=== PATIENT | female | born 1940 | race Hispanic/Latino ===

== ENCOUNTER 2016-11-16 01:09 | Inpatient (IN) | payer MEDICARE, BC ==
[2016-11-16] MEDS ORDERED: Sodium Chloride 0.9% 1,000 ML IV ONE (01:29)
[2016-11-16] MEDS ORDERED: Pantoprazole 80 MG in Sodium Chloride 0.9% 100 ML IV STA (01:29)
--- NOTE | 2016-11-16 01:39 | C.PDOC ---
History Of Present Illness Patient, with a past medical history of diverticulitis, hypertension and hypercholesterolemia, is brought to the ED by ambulance complaining of 5-6 episodes of bright red blood from her rectum that began earlier today. Patient also complains of a syncopal episode while in the bathroom, but denies any fall. Patient denies chest pain, shortness of breath, nausea, vomiting, numbness , weakness, or dizziness. Time Seen by Provider: 11/16/16 01:28 Chief Complaint (Nursing): Syncope History Per: Patient History/Exam Limitations: no limitations Onset/Duration Of Symptoms: Hrs (earlier today) Current Symptoms Are (Timing): Still Present Number Of Bleeding Episodes: Multiple: (5-6) Amount of Blood Loss: Small Severity: Mild Pain Scale Rating Of: 3 Quality Of Discomfort: Other Associated Symptoms: Rectal Bleeding Modifying Factors: None Recent travel outside of the [place]: No Additional History Per: EMS Past Medical History Reviewed: Historical Data, Nursing Documentation, Vital Signs Vital Signs: Last Vital Signs Temp 97.5 F L 11/16/16 01:18 Pulse 61 11/16/16 01:18 Resp 24 11/16/16 01:18 BP 109/46 L 11/16/16 01:18 Pulse Ox 95 11/16/16 01:51 - Medical History PMH: Diverticulitis, HTN, Hypercholesterolemia Surgical History: CABG (3 stents), Cholecystectomy - [facility] Procedures INSERTION OF TOTALLY IMPLANTABLE VASC ACCESS DEVIC (08/03/04) OPEN BIOPSY OF BREAST (12/10/03) PERCUTAN NEEDLE BIOPSY OF BREAST (08/26/03) SUBTOTAL MASTECTOMY (12/10/03) UP LIMB SFT TIS XRAY NEC (08/03/04) Family History: States: Unknown Family Hx - Social History Hx Alcohol Use: No Hx Substance Use: No - Immunization History Hx Tetanus Toxoid Vaccination: No Hx Influenza Vaccination: Yes Hx Pneumococcal Vaccination: No Review Of Systems Cardiovascular: Negative for: Chest Pain Respiratory: Negative for: Shortness of Breath Gastrointestinal: Positive for: Other (rectal bleeding). Negative for: Nausea, Vomiting Neurological: Positive for: Other (syncope). Negative for: Weakness, Numbness, Dizziness Physical Exam - Physical Exam Appears: Non-toxic, No Acute Distress Skin: Warm, Dry Head: Atraumatic, Normacephalic Eye(s): bilateral: PERRL, EOMI Oral Mucosa: Moist Neck: Supple Chest: Symmetrical, Other (port on right side of chest from previous chemo) Cardiovascular: Rhythm Regular Respiratory: No Rales, No Rhonchi, No Wheezing Gastrointestinal/Abdominal: Soft, No Tenderness, No Guarding, No Rebound Rectal: Hemorrhoids (large), Other (large rectal tear) Back: No CVA Tenderness Extremity: Bilateral: Atraumatic, Normal Color And Temperature Neurological/Psych: Oriented x3 ED Course And Treatment - Laboratory Results Result Diagrams: 11/16/16 01:44 11/16/16 01:44 ECG: Interpreted By Me, Viewed By Me ECG Rhythm: Sinus Bradycardia (49), Nonspecific Changes (old anteroseptal mi) O2 Sat by Pulse Oximetry: 95 (RA) Pulse Ox Interpretation: Normal Progress Note: Plan: EKG, Labs, Pantoprazole, IV fluids, Zofran Disposition Discussed With : Phong Lopez Comment: accepted the pt on his service and took over the care at 3:10AM Doctor Will See Patient In The: Hospital Counseled Patient/Family Regarding: Studies Performed, Diagnosis - Disposition Disposition: HOSPITALIZED Disposition Time: :29 Condition: FAIR - POA Present On Arrival: Poor Glycemic Control - Clinical Impression Clinical Impression: Syncope, Hemorrhoids, Rectal bleed - Scribe Statement The provider has reviewed the documentation as recorded by the Scribe Radha Israel Provider Attestation: All medical record entries made by the Scribe were at my direction and personally dictated by me. I have reviewed the chart and agree that the record accurately reflects my personal performance of the history, physical exam, medical decision making, and the department course for this patient. I have also personally directed, reviewed, and agree with the discharge instructions and disposition. Decision To Admit - Pt Status Changed To: Hospital Disposition Of: Inpatient - Admit Certification Admit to Inpatient:: After my assessment, the patient will require hospitalization for at least two midnights. This is because of the severity of symptoms shown, intensity of services needed, and/or the medical risk in this patient being treated as an outpatient. - InPatient: Physician Admission Certification: I certify that this patient requires 2 or more midnights of care for the following reason:: After my assessment, the patient will require hospitalization for at least two midnights. This is because of the severity of symptoms shown, intensity of services needed, and/or the medical risk in this patient being treated as an outpatient. - . Bed Request Type: Telemetry Admitting Physician: Phong Lopez Patient Diagnosis: Syncope, Hemorrhoids, Rectal bleed
[2016-11-16 01:54] LABS: BASO # 0.2 K/uL (0.0-0.2); BASO % 1.1 % (0.0-2.0); EOS # 0.5 K/uL (0.0-0.7); HEMATOCRIT 37.2 % (34.0-47.0); LYMPH # 2.7 K/uL (1.0-4.3); MEAN CELL VOLUME 86.8 fL (81.0-99.0); MEAN CORPUSCULAR HEMOGLOBIN 29.1 pg (27.0-31.0); MEAN CORPUSCULAR HGB CONC 33.6 g/dL (33.0-37.0); MONO # 0.9 K/uL (0.0-0.8); NRBC % 0.1 % (0.0-2.0); RED CELL DISTRIBUTION WIDTH 14.3 % (11.5-14.5); WHITE BLOOD COUNT 17.1 K/uL (4.8-10.8)
[2016-11-16 02:04] LABS: ALB/GLOB RATIO 1.4 (1.0-2.1); TOTAL PROTEIN 7.6 g/dL (6.3-8.3)
[2016-11-16 02:05] LABS: CALCIUM 9.2 mg/dl (8.6-10.4)
[2016-11-16 02:06] LABS: POTASSIUM 5.1 mmol/L (3.6-5.2)
--- NOTE | 2016-11-16 06:09 | CT ---
EXAM: CT Head Without Intravenous Contrast CLINICAL HISTORY: 75 years old, female; Pain; Headache and other: Syncope TECHNIQUE: Axial computed tomography images of the head/brain without intravenous contrast. This CT exam was performed using one or more of the following dose reduction techniques: automated exposure control, adjustment of the mA and/or kV according to patient size, and/or use of iterative reconstruction technique. EXAM DATE/TIME: 11/16/2016 3:11 AM COMPARISON: No relevant prior studies available. FINDINGS: Artifacts from left suprasellar aneurysm coil limit assessment of surrounding area. There is no pathological intra-axial or extra-axial fluid collection. No edema, midline shift or mass effect is noted. Periventricular white matter hypoattenuation of small vessel disease are noted. Tiny old lacunar infarcts in right basal ganglia and thalamus, head left caudate nucleus are noted. There is normal ricketts white differentiation. There is cerebral atrophy. Calvarium is unremarkable. Included paranasal sinuses and mastoids are clear. IMPRESSION: 1. No acute cerebral hemorrhage or edema. 2. Small vessel ischemic disease, old lacunar infarcts and atrophy.
[2016-11-16] MEDS: (Novolin R) Insulin Human Regular 100 units/ml vial SC SCH ×4 (07:30→22:55)
[2016-11-16] MEDS: Ciprofloxacin 400mg/200ml D5W 200 ML IVPB SCH ×2 (08:00→19:57)
[2016-11-16] MEDS: cefTRIAXone IV 1 gm in Dextros 50 ML IVPB SCH (10:00)
--- NOTE | 2016-11-16 10:46 | CP.PCM.CON ---
<Roger Colon - Last Filed: 11/16/16 11:29> History of Present Illness - History of Present Illness History of Present Illness: PGY4 GI Fellow Consult Note Patient is a 75yo female with PMHx significant for lung cancer, cerebral aneursym s/p coiling, CAD s/p 3 vessel CABG, divertiulitis s/p partial colectomy , HTN, DM, Dyslipidemia who presented to the hospital with one day of rectal bleeding. The patient is a poor historian. Spoke with her daughter Penny on the phone who is also not completely aware of her mother's past history. Patient passed a large, hard BM yesterday morning and noted bright red blood mixed in with her stool. Since this episode she had 5-6 more episodes along with some dark black stool. 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 The patient also admits that 3 weeks prior to admission she suddenly developed vertigo with nausea which she treated with OTC Dramamine and Pepto Bismol and had subsequent improvement in symptoms. Moreover, following this episode she had neck/back/leg pain for which she used almost daily ASA and Alleve. Admits to She has a long history of constipation with inability to pass stool more than every 3 days. She does not use any laxative or stool softener at home. Currently, she denies any abdominal pain, nausea, vomiting, fever, chills, weight loss, dysphagia. PMHx: See HPI PSHx: Partial colectomy with diverting colostomy and eventual reversal for diverticulitis, Cholecystectomy, Vessel coiling for cerebral aneurysm, CABG [id number] FHx: Mother - unknown malignancy Social: Quit smoking > 10 years ago - 60+pack years, denies EtOH or illicit drug use Endo: Unsure - may have had colonoscopy previously Review of Systems - Constitutional Constitutional: absent: Anorexia, Chills, Weight Loss - EENT Eyes: absent: Change in Vision Nose/Mouth/Throat: absent: Sore Throat - Cardiovascular Cardiovascular: absent: Chest Pain, Diaphoresis, Dyspnea, Palpitations - Respiratory Respiratory: absent: Cough, Dyspnea, Change in Mucous Color - Gastrointestinal Gastrointestinal: Constipation, Hematochezia, Melena. absent: Abdominal Pain, Bloating, Cramping, Diarrhea, Dyspepsia, Dysphagia, Heartburn, Hematemesis, Loose Stools, Nausea, Vomiting - Genitourinary Genitourinary: absent: Dysuria, Urinary Frequency, Urinary Urgency - Musculoskeletal Musculoskeletal: absent: Back Pain, Neck Pain - Integumentary Integumentary: absent: New Lesions, Rash - Neurological Neurological: Dizziness, Syncope, Vertigo. absent: Numbness, Focal Weakness - Psychiatric Psychiatric: absent: Anxiety, Depression - Endocrine Endocrine: absent: Polydipsia, Polyphagia, Polyuria - Hematologic/Lymphatic Hematologic: absent: Easy Bleeding, Easy Bruising, Lymphadenopathy Past Patient History - Infectious Disease Hx of Infectious Diseases: None - Past Medical History & Family History Past Medical History?: Yes - Past Social History Smoking Status: Never Smoked - CARDIAC Hx Hypercholesterolemia: Yes Hx Hypertension: Yes - PULMONARY Hx Respiratory Disorders: No - NEUROLOGICAL Hx Neurological Disorder: Yes Other/Comment: Brain aneurysm - HEENT Hx HEENT Problems: No - RENAL Hx Chronic Kidney Disease: No - ENDOCRINE/METABOLIC Hx Endocrine Disorders: Yes - HEMATOLOGICAL/ONCOLOGICAL Hx Cancer: Yes (lung) - INTEGUMENTARY Hx Dermatological Problems: No - MUSCULOSKELETAL/RHEUMATOLOGICAL Hx Falls: No - GASTROINTESTINAL Hx Diverticulitis: Yes - GENITOURINARY/GYNECOLOGICAL Hx Genitourinary Disorders: No - PSYCHIATRIC Hx Substance Use: No - SURGICAL HISTORY Hx Cholecystectomy: Yes Hx Coronary Artery Bypass Graft: Yes (3 stents) - ANESTHESIA Hx Anesthesia: Yes Hx Anesthesia Reactions: No Hx Malignant Hyperthermia: No Has any member of the family had a problem w/ anesthesia?: No Meds Allergies/Adverse Reactions: Allergies Allergy/AdvReac Type Severity Reaction Status Date / Time No Known Allergies Allergy Verified 11/16/16 01:24 - Medications Medications: Current Medications Ceftriaxone Sodium (Rocephin Iv 1 Gm Duplex) 50 mls @ 100 mls/hr IVPB DAILY [facility] Ciprofloxacin (Cipro 400mg/200ml Dsw) 200 mls @ 133 mls/hr IVPB Q12H [facility] Insulin Human Regular (Novolin R) 1 unit SC ACHS [facility] PRN Reason: Protocol Lisinopril (Zestril) 5 mg PO DAILY [facility] Losartan Potassium (Cozaar) 50 mg PO DAILY [facility] Pantoprazole Sodium (Protonix Inj) 40 mg IVP Q12H [facility] Pneumococcal Polyvalent Vaccine (Pneumovax 23 Vaccine) 0.5 ml IM .ONCE ONE Stop: 11/18/16 10:01 Physical Exam - Constitutional Appears: Non-toxic, No Acute Distress, Confused - Eye Exam Eye Exam: EOMI, PERRL - ENT Exam ENT Exam: Mucous Membranes Moist - Respiratory Exam Respiratory Exam: Clear to Auscultation Bilateral. absent: Rales, Rhonchi, Wheezes - Cardiovascular Exam Cardiovascular Exam: Bradycardia, REGULAR RHYTHM, +S1, +S2 - GI/Abdominal Exam GI & Abdominal Exam: Normal Bowel Sounds, Soft. absent: Distended, Firm, Guarding, Organomegaly, Rigid, Tenderness Additional comments: prior healed surgical scars - Rectal Exam Rectal Exam: Black Stool, Bloody Stool, Hemorrhoids (external) - Extremities Exam Extremities exam: Positive for: normal inspection. Negative for: pedal edema - Neurological Exam Neurological exam: Alert, Oriented x3 - Psychiatric Exam Psychiatric exam: Normal Affect, Normal Mood - Skin Skin Exam: Dry, Warm Results - Vital Signs Recent Vital Signs: Last Vital Signs Temp 97.9 F 11/16/16 08:29 Pulse 60 11/16/16 08:29 Resp 20 11/16/16 08:29 BP 144/60 11/16/16 08:29 Pulse Ox 93 L 11/16/16 08:29 - Labs Result Diagrams: 11/16/16 01:44 11/16/16 01:44 Labs: Laboratory Results - last 24 hr 11/16/16 06:23 POC Glucose (mg/dL) 115 H Assessment & Plan - Assessment and Plan (Free Text) Assessment: Patient is a 75yo female with PMHx significant for lung cancer, cerebral aneursym s/p coiling, CAD s/p 3 vessel CABG, divertiulitis s/p partial colectomy , HTN, DM,dyslipidemia who presented to the hospital with one day of rectal bleeding -Hematochezia -Syncope and collapse -External hemorrhoids -Constipation -Bradycardia -CAD s/p CABG -AHSAN vs CKD -H/O Lung cancer -H/O diverticulitis s/p partial colectomy -H/O cerebral aneurysm s/p coiling Plan: -Patient with melanotic stool and large external hemorrhoid on rectal examination -Would benefit from EGD/Colonoscopy for hematochezia in patient with history of lung cancer however, would require cardiology clearance given H/O CAD/CABG with bradycardia -I have called the patient's oncologist Dr Jones, awaiting call back regarding prior lung cancer diagnosis and treatment -Monitor CBC, awaiting AM lab work -Type and crossmatch -Protonix 40mg IV QAMAC -Pt currently hemodynamically stable, would recommend IVF given recent bleeding episode and kidney dysfunction (unclear underlying kidney disease or new onset AHSAN) -Cardiology consulted - appreciate input - Date & Time Date: 11/16/16 Time: 07:00 <Celina Colorado - Last Filed: 11/16/16 17:28> Meds - Medications Medications: Current Medications Ceftriaxone Sodium (Rocephin Iv 1 Gm Duplex) 50 mls @ 100 mls/hr IVPB DAILY [facility] Last Admin: 11/16/16 10:00 Dose: 100 mls/hr Ciprofloxacin (Cipro 400mg/200ml Dsw) 200 mls @ 133 mls/hr IVPB Q12H [facility] Last Admin: 11/16/16 08:00 Dose: 133 mls/hr Dextrose/Sodium Chloride (Dextrose 5%/0.45% Ns 1000 Ml) 1,000 mls @ 50 mls/hr IV .Q20H [facility] Insulin Human Regular (Novolin R) 1 unit SC ACHS [facility] PRN Reason: Protocol Last Admin: 11/16/16 12:00 Dose: Not Given Losartan Potassium (Cozaar) 50 mg PO DAILY [facility] Last Admin: 11/16/16 11:00 Dose: 50 mg Pantoprazole Sodium (Protonix Inj) 40 mg IVP ACB [facility] Pneumococcal Polyvalent Vaccine (Pneumovax 23 Vaccine) 0.5 ml IM .ONCE ONE Stop: 11/18/16 10:01 Results - Vital Signs Recent Vital Signs: Last Vital Signs Temp 97.5 F L 11/16/16 16:04 Pulse 74 11/16/16 16:04 Resp 20 11/16/16 16:04 BP 136/77 11/16/16 16:04 Pulse Ox 94 L 11/16/16 16:04 - Labs Result Diagrams: 11/16/16 11:06 11/16/16 11:06 Labs: Laboratory Results - last 24 hr 11/16/16 11/16/16 11/16/16 06:23 11:06 17:05 WBC 12.6 H RBC 4.01 Hgb 11.5 Hct 34.5 MCV 86.1 MCH 28.7 MCHC 33.4 RDW 14.0 Plt Count 244 MPV 8.3 Sodium 142 Potassium 3.9 Chloride 106 Carbon Dioxide 22 Anion Gap 18 BUN 36 H Creatinine 2.0 H Est GFR ( Amer) 29 Est GFR (Non-Af Amer) 24 POC Glucose (mg/dL) 115 H 104 Random Glucose 87 Calcium 8.9 TSH 3rd Generation 1.56 Attending/Attestation - Attestation I have personally seen and examined this patient.: Yes I have fully participated in the care of the patient.: Yes I have reviewed all pertinent clinical information: Yes Notes (Text): Patient seen and examined with GI fellow. Agree with his note as documented above with the following additions/exceptions. This is a 75yo female with PMHx of ?lung cancer, cerebral aneursym s/p coiling, CAD s/p CABG, diverticulitis s/ p resection/diverting ostomy s/p reversal, HTN, DM,dyslipidemia who is admitted with rectal bleeding. She notes a history of intermittent nausea/dizziness over the past few weeks and admits to occasional NSAID use for LLOYD. She denies having prior endoscopy, last colonoscopy was >10 years ago. She appears comfortable this morning; rectal examination reveals maroon/dark stool in vault. She was bradycardic on admission/seen and evaluated by cardiology who did bedside echo and no significant abnormalities noted and cleared for endoscopic evaluation. Would continue IV PPI. She is currently hemodynamically stable. Monitor for recurrent bleeding. She would benefit from EGD/colonoscopy for further evaluation of GI bleeding, which can be pursued on Saturday if remains clinically stable and patient agreeable. 11/16/16 17:24
[2016-11-16 11:27] LABS: POTASSIUM 3.9 mmol/L (3.6-5.2)
[2016-11-16 11:30] LABS: HEMATOCRIT 34.5 % (34.0-47.0); MEAN CELL VOLUME 86.1 fL (81.0-99.0); MEAN CORPUSCULAR HEMOGLOBIN 28.7 pg (27.0-31.0); MEAN CORPUSCULAR HGB CONC 33.4 g/dL (33.0-37.0); MEAN PLATELET VOLUME 8.3 fL (7.2-11.7); WHITE BLOOD COUNT 12.6 K/uL (4.8-10.8)
[2016-11-16 11:31] LABS: CALCIUM 8.9 mg/dl (8.6-10.4)
[2016-11-16 11:58] LABS: THYROID STIMULATING HORMONE 1.56 mIU/L (0.46-4.68)
--- NOTE | 2016-11-16 12:05 | CP.PCM.CON ---
History of Present Illness - History of Present Illness History of Present Illness: PER GI HPI: Patient is a 75yo female with PMHx significant for lung cancer, cerebral aneursym s/p coiling, CAD s/p 3 vessel CABG, divertiulitis s/p partial colectomy , HTN, DM, Dyslipidemia who presented to the hospital with one day of rectal bleeding. The patient is a poor historian. Spoke with her daughter Penny on the phone who is also not completely aware of her mother's past history. Patient passed a large, hard BM yesterday morning and noted bright red blood mixed in with her stool. Since this episode she had 5-6 more episodes along with some dark black stool. 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 The patient also admits that 3 weeks prior to admission she suddenly developed vertigo with nausea which she treated with OTC Dramamine and Pepto Bismol and had subsequent improvement in symptoms. Moreover, following this episode she had neck/back/leg pain for which she used almost daily ASA and Alleve. Admits to She has a long history of constipation with inability to pass stool more than every 3 days. She does not use any laxative or stool softener at home. Currently, she denies any abdominal pain, nausea, vomiting, fever, chills, weight loss, dysphagia. Cardiac Hx: CAD s/p CABG PSHx: Partial colectomy with diverting colostomy and eventual reversal for diverticulitis, Cholecystectomy, Vessel coiling for cerebral aneurysm, CABG [id number], Lung Ca; residual R. chest chemo port. FHx: Mother - unknown malignancy Social: Quit smoking > 10 years ago - 60+pack years, denies EtOH or illicit drug use Endo: Unsure - may have had colonoscopy previously Review of Systems - Review of Systems All systems: reviewed and no additional remarkable complaints except Past Patient History - Infectious Disease Hx of Infectious Diseases: None - Past Medical History & Family History Past Medical History?: Yes - Past Social History Smoking Status: Never Smoked - CARDIAC Hx Hypercholesterolemia: Yes Hx Hypertension: Yes - PULMONARY Hx Respiratory Disorders: No - NEUROLOGICAL Hx Neurological Disorder: Yes Other/Comment: Brain aneurysm - HEENT Hx HEENT Problems: No - RENAL Hx Chronic Kidney Disease: No - ENDOCRINE/METABOLIC Hx Endocrine Disorders: Yes - HEMATOLOGICAL/ONCOLOGICAL Hx Cancer: Yes (lung) - INTEGUMENTARY Hx Dermatological Problems: No - MUSCULOSKELETAL/RHEUMATOLOGICAL Hx Falls: No - GASTROINTESTINAL Hx Diverticulitis: Yes - GENITOURINARY/GYNECOLOGICAL Hx Genitourinary Disorders: No - PSYCHIATRIC Hx Substance Use: No - SURGICAL HISTORY Hx Cholecystectomy: Yes Hx Coronary Artery Bypass Graft: Yes (3 stents) - ANESTHESIA Hx Anesthesia: Yes Hx Anesthesia Reactions: No Hx Malignant Hyperthermia: No Has any member of the family had a problem w/ anesthesia?: No Meds Allergies/Adverse Reactions: Allergies Allergy/AdvReac Type Severity Reaction Status Date / Time No Known Allergies Allergy Verified 11/16/16 01:24 - Medications Medications: Current Medications Ceftriaxone Sodium (Rocephin Iv 1 Gm Duplex) 50 mls @ 100 mls/hr IVPB DAILY [facility] Last Admin: 11/16/16 10:00 Dose: 100 mls/hr Ciprofloxacin (Cipro 400mg/200ml Dsw) 200 mls @ 133 mls/hr IVPB Q12H [facility] Last Admin: 11/16/16 08:00 Dose: 133 mls/hr Insulin Human Regular (Novolin R) 1 unit SC ACHS [facility] PRN Reason: Protocol Last Admin: 11/16/16 07:30 Dose: Not Given Lisinopril (Zestril) 5 mg PO DAILY [facility] Last Admin: 11/16/16 10:00 Dose: 5 mg Losartan Potassium (Cozaar) 50 mg PO DAILY [facility] Last Admin: 11/16/16 11:52 Dose: 50 mg Pantoprazole Sodium (Protonix Inj) 40 mg IVP ACB [facility] Pneumococcal Polyvalent Vaccine (Pneumovax 23 Vaccine) 0.5 ml IM .ONCE ONE Stop: 11/18/16 10:01 Physical Exam - Constitutional Appears: No Acute Distress - Head Exam Head Exam: ATRAUMATIC, NORMAL INSPECTION, NORMOCEPHALIC - Eye Exam Eye Exam: EOMI, Normal appearance, PERRL - ENT Exam ENT Exam: Mucous Membranes Moist, Normal Oropharynx - Neck Exam Neck exam: Negative for: Tenderness, Thyromegaly - Respiratory Exam Respiratory Exam: Clear to Auscultation Bilateral, NORMAL BREATHING PATTERN. absent: Rhonchi, Wheezes - Cardiovascular Exam Cardiovascular Exam: REGULAR RHYTHM, +S1, +S2. absent: JVD, +S4, Systolic Murmur - GI/Abdominal Exam GI & Abdominal Exam: Soft. absent: Tenderness - Extremities Exam Extremities exam: Positive for: normal inspection. Negative for: calf tenderness, pedal edema - Neurological Exam Neurological exam: Alert, CN II-XII Intact, Oriented x3 - Psychiatric Exam Psychiatric exam: Normal Affect, Normal Mood - Skin Skin Exam: Normal Color, Warm Results - Vital Signs Recent Vital Signs: Last Vital Signs Temp 97.9 F 11/16/16 08:29 Pulse 60 11/16/16 08:29 Resp 20 11/16/16 08:29 BP 144/60 11/16/16 08:29 Pulse Ox 93 L 11/16/16 08:29 - Labs Result Diagrams: 11/16/16 11:06 11/16/16 11:06 Labs: Laboratory Results - last 24 hr 11/16/16 11/16/16 06:23 11:06 WBC 12.6 H RBC 4.01 Hgb 11.5 Hct 34.5 MCV 86.1 MCH 28.7 MCHC 33.4 RDW 14.0 Plt Count 244 MPV 8.3 Sodium 142 Potassium 3.9 Chloride 106 Carbon Dioxide 22 Anion Gap 18 BUN 36 H Creatinine 2.0 H Est GFR ( Amer) 29 Est GFR (Non-Af Amer) 24 POC Glucose (mg/dL) 115 H Random Glucose 87 Calcium 8.9 TSH 3rd Generation 1.56 Assessment & Plan - Assessment and Plan (Free Text) Assessment: GI bleed planned EGD/Colonoscopy Known CAD RX with CABg in the past No active CAD sx's; no clinical volume overload or abnormal auscultation. Echo done directly seen by me 11/16/16: Normal LVEF, normal wall motion, no sig valve abnormalities, grade 1 DD. EK11/16/16; NSR, no acute ischemic changes Based on above: patient acceptable risk to proceed with GI work-up as planned.
--- NOTE | 2016-11-16 19:25 | CP.PCM.HP ---
History of Present Illness - History of Present Illness History of Present Illness: CC: syncope HPI: Patient, with a past medical history of diverticulitis, hypertension and hypercholesterolemia, is brought to the ED by ambulance complaining of 5-6 episodes of bright red blood from her rectum that began earlier today. Patient also complains of a syncopal episode while in the bathroom, but denies any fall. Patient denies chest pain, shortness of breath, nausea, vomiting, numbness , weakness, or dizziness Present on Admission - Present on Admission Any Indicators Present on Admission: No Past Patient History - Infectious Disease Hx of Infectious Diseases: None - Past Medical History & Family History Past Medical History?: Yes - Past Social History Smoking Status: Never Smoked - CARDIAC Hx Hypercholesterolemia: Yes Hx Hypertension: Yes - PULMONARY Hx Respiratory Disorders: No - NEUROLOGICAL Hx Neurological Disorder: Yes Other/Comment: Brain aneurysm - HEENT Hx HEENT Problems: No - RENAL Hx Chronic Kidney Disease: No - ENDOCRINE/METABOLIC Hx Endocrine Disorders: Yes - HEMATOLOGICAL/ONCOLOGICAL Hx Cancer: Yes (lung) - INTEGUMENTARY Hx Dermatological Problems: No - MUSCULOSKELETAL/RHEUMATOLOGICAL Hx Falls: No - GASTROINTESTINAL Hx Diverticulitis: Yes - GENITOURINARY/GYNECOLOGICAL Hx Genitourinary Disorders: No - PSYCHIATRIC Hx Substance Use: No - SURGICAL HISTORY Hx Cholecystectomy: Yes Hx Coronary Artery Bypass Graft: Yes (3 stents) - ANESTHESIA Hx Anesthesia: Yes Hx Anesthesia Reactions: No Hx Malignant Hyperthermia: No Has any member of the family had a problem w/ anesthesia?: No Meds Home Medications: Home Medication List Medication Instructions Recorded Confirmed Type Pantoprazole [Protonix EC Tab] 40 mg PO ACB #30 ect 11/19/16 Rx Allergies/Adverse Reactions: Allergies Allergy/AdvReac Type Severity Reaction Status Date / Time No Known Allergies Allergy Verified 11/16/16 01:24 Results - Vital Signs Recent Vital Signs: Last Vital Signs Temp 97.5 F L 11/16/16 16:04 Pulse 74 11/16/16 16:04 Resp 20 11/16/16 16:04 BP 136/77 11/16/16 16:04 Pulse Ox 94 L 11/16/16 16:04 - Labs Result Diagrams: 11/19/16 09:32 11/19/16 09:32 Labs: Laboratory Results - last 24 hr 11/16/16 11/16/16 11/16/16 06:23 11:06 17:05 WBC 12.6 H RBC 4.01 Hgb 11.5 Hct 34.5 MCV 86.1 MCH 28.7 MCHC 33.4 RDW 14.0 Plt Count 244 MPV 8.3 Sodium 142 Potassium 3.9 Chloride 106 Carbon Dioxide 22 Anion Gap 18 BUN 36 H Creatinine 2.0 H Est GFR ( Amer) 29 Est GFR (Non-Af Amer) 24 POC Glucose (mg/dL) 115 H 104 Random Glucose 87 Calcium 8.9 TSH 3rd Generation 1.56
[2016-11-17 07:28] LABS: BASO # 0.1 K/uL (0.0-0.2); EOS # 0.4 K/uL (0.0-0.7); EOS % 4.1 % (0.0-4.0); HEMATOCRIT 33.3 % (34.0-47.0); LYMPH # 1.8 K/uL (1.0-4.3); LYMPH % 19.7 % (20.0-40.0); MEAN CELL VOLUME 86.2 fL (81.0-99.0); MEAN CORPUSCULAR HEMOGLOBIN 28.9 pg (27.0-31.0); MEAN CORPUSCULAR HGB CONC 33.5 g/dL (33.0-37.0); MONO # 0.6 K/uL (0.0-0.8); MONO % 6.5 % (0.0-10.0); RED CELL DISTRIBUTION WIDTH 14.4 % (11.5-14.5); WHITE BLOOD COUNT 9.3 K/uL (4.8-10.8)
[2016-11-17] MEDS: (Novolin R) Insulin Human Regular 100 units/ml vial SC SCH ×4 (08:00→22:10)
[2016-11-17 08:33] LABS: CALCIUM 8.3 mg/dl (8.6-10.4)
[2016-11-17] MEDS: Ciprofloxacin 400mg/200ml D5W 200 ML IVPB SCH (09:00)
[2016-11-17] MEDS: cefTRIAXone IV 1 gm in Dextros 50 ML IVPB SCH (10:11)
--- NOTE | 2016-11-17 13:17 | CP.PCM.PN ---
<Roger Colon - Last Filed: 11/17/16 13:15> Subjective - Date & Time of Evaluation Date of Evaluation: 11/17/16 Time of Evaluation: 10:50 - Subjective Subjective: PGY4 GI Fellow Progress Note Patient seen and examined bedside this morning. The patient denies any complaints at present. She is eager to go home. Denies any further rectal bleeding. No events overnight. 12 system ROS performed and negative except where stated. Objective - Vital Signs/Intake and Output Vital Signs (last 24 hours): Temp Pulse Resp BP Pulse Ox 98.4 F 78 20 135/64 95 11/17/16 00:15 11/17/16 07:00 11/17/16 00:15 11/17/16 00:15 11/17/16 00:15 Intake and Output: 11/17/16 11/17/16 06:59 18:59 Intake Total 1040 Balance 1040 - Medications Medications: Current Medications Ceftriaxone Sodium (Rocephin Iv 1 Gm Duplex) 50 mls @ 100 mls/hr IVPB DAILY [facility] Last Admin: 11/17/16 10:11 Dose: 100 mls/hr Ciprofloxacin (Cipro 400mg/200ml Dsw) 200 mls @ 133 mls/hr IVPB Q12H [facility] Last Admin: 11/17/16 09:00 Dose: 133 mls/hr Dextrose/Sodium Chloride (Dextrose 5%/0.45% Ns 1000 Ml) 1,000 mls @ 50 mls/hr IV .Q20H [facility] Insulin Human Regular (Novolin R) 1 unit SC ACHS [facility] PRN Reason: Protocol Last Admin: 11/17/16 12:23 Dose: Not Given Losartan Potassium (Cozaar) 50 mg PO DAILY [facility] Last Admin: 11/17/16 10:30 Dose: 50 mg Pantoprazole Sodium (Protonix Inj) 40 mg IVP ACB [facility] Last Admin: 11/17/16 06:38 Dose: 40 mg Pneumococcal Polyvalent Vaccine (Pneumovax 23 Vaccine) 0.5 ml IM .ONCE ONE Stop: 11/18/16 10:01 - Labs Labs: 11/17/16 07:10 11/17/16 07:10 PT 10.9 SECONDS (9.7-12.2) 11/16/16 02:15 INR 1.0 04/07/17 02:15 APTT 30 SECONDS (21-34) 11/16/16 02:15 - Constitutional Appears: Non-toxic, No Acute Distress - Eye Exam Eye Exam: EOMI, PERRL - ENT Exam ENT Exam: Mucous Membranes Moist - Respiratory Exam Respiratory Exam: Clear to Ausculation Bilateral. absent: Rales, Rhonchi, Wheezes - Cardiovascular Exam Cardiovascular Exam: RRR, +S1, +S2 - GI/Abdominal Exam GI & Abdominal Exam: Soft, Normal Bowel Sounds. absent: Distended, Firm, Guarding, Rigid, Tenderness, Organomegaly - Extremities Exam Extremities Exam: Normal Inspection. absent: Pedal Edema - Neurological Exam Neurological Exam: Alert, Awake, Oriented x3 - Psychiatric Exam Psychiatric exam: Normal Affect, Normal Mood - Skin Skin Exam: Dry, Warm Assessment and Plan - Assessment and Plan (Free Text) Assessment: Patient is a 75yo female with PMHx significant for lung cancer, cerebral aneursym s/p coiling, CAD s/p 3 vessel CABG, divertiulitis s/p partial colectomy , HTN, DM,dyslipidemia who presented to the hospital with one day of rectal bleeding -Hematochezia -Syncope and collapse -External hemorrhoids -Constipation -Bradycardia -CAD s/p CABG -AHSAN vs CKD -H/O Lung cancer s/p chemo/XRT -H/O diverticulitis s/p partial colectomy -H/O cerebral aneurysm s/p coiling Plan: -Plan for EGD/Colonoscopy on Saturday -Liquid diet to start tomorrow morning -Will Rx bowel prep tomorrow afternoon -Cardiology evaluated - cleared for procedure -Protonix 40mg IV QAMAC <Poly Escobedo MD - Last Filed: 11/17/16 20:37> Objective - Vital Signs/Intake and Output Vital Signs (last 24 hours): Temp Pulse Resp BP Pulse Ox 98.0 F 79 20 137/74 96 11/17/16 16:09 11/17/16 16:09 11/17/16 16:09 11/17/16 16:09 11/17/16 16:09 Intake and Output: 11/17/16 11/18/16 18:59 06:59 Intake Total 750 Balance 750 - Medications Medications: Current Medications Dextrose/Sodium Chloride (Dextrose 5%/0.45% Ns 1000 Ml) 1,000 mls @ 50 mls/hr IV .Q20H [facility] Last Admin: 11/17/16 20:07 Dose: 50 mls/hr Insulin Human Regular (Novolin R) 1 unit SC ACHS [facility] PRN Reason: Protocol Last Admin: 11/17/16 17:00 Dose: Not Given Losartan Potassium (Cozaar) 50 mg PO DAILY [facility] Last Admin: 11/17/16 10:30 Dose: 50 mg Pantoprazole Sodium (Protonix Inj) 40 mg IVP ACB [facility] Last Admin: 11/17/16 06:38 Dose: 40 mg Pneumococcal Polyvalent Vaccine (Pneumovax 23 Vaccine) 0.5 ml IM .ONCE ONE Stop: 11/18/16 10:01 - Labs Labs: 11/17/16 07:10 11/17/16 07:10 PT 10.9 SECONDS (9.7-12.2) 11/16/16 02:15 INR 1.0 11/16/16 02:15 APTT 30 SECONDS (21-34) 11/16/16 02:15 Attending/Attestation - Attestation I have personally seen and examined this patient.: Yes I have fully participated in the care of the patient.: Yes I have reviewed all pertinent clinical information, including history, physical exam and plan: Yes Notes (Text): 11/17/16 20:36 Patient seen with GI fellow on rounds. This is a 75 yr old female with PMHx significant for lung cancer s/p chemo/radiation, cerebral aneursym s/p coiling, CAD s/p 3 vessel CABG, divertiulitis s/p partial colectomy, HTN, DM, dyslipidemia who presented to the hospital with one day of rectal bleeding. Will benefit from EGD/ colonoscopy- planned for Saturday. Liquid diet tomorrow and NPO after midnight Saturday night
[2016-11-17] MEDS: Dextrose 5%/0.45% NS 1,000 ML IV SCH (20:07)
[2016-11-18] MEDS: (Novolin R) Insulin Human Regular 100 units/ml vial SC SCH ×4 (07:30→22:20)
[2016-11-18] MEDS ORDERED: Pneumococcal 23-Valent Vaccine IM ONE (10:00)
[2016-11-18] MEDS: Dextrose 5%/0.45% NS 1,000 ML IV SCH (10:00)
--- NOTE | 2016-11-18 10:18 | CP.PCM.PN ---
<PaulachivoRoger - Last Filed: 11/18/16 13:00> Subjective - Date & Time of Evaluation Date of Evaluation: 11/18/16 Time of Evaluation: 09:30 - Subjective Subjective: PGY4 GI Fellow Progress Note Patient seen and examined bedside this morning. The patient denies any complaints at this point. Does have some frustration today, stating that she reprimanded her daughter for calling an ambulance for her and that she has had overall healthcare fatigue since the early when she had cancer. Does want to have endoscopic evaluation however. Denies any further rectal bleeding. 12 system ROS performed and negative except where stated. Objective - Vital Signs/Intake and Output Vital Signs (last 24 hours): Temp Pulse Resp BP Pulse Ox 98.6 F 105 H 20 155/88 H 97 11/18/16 07:00 11/18/16 07:30 11/18/16 07:00 11/18/16 07:00 11/18/16 07:00 Intake and Output: 11/18/16 11/18/16 06:59 18:59 Intake Total 745 Balance 745 - Medications Medications: Current Medications Bisacodyl (Dulcolax) 20 mg PO ONCE ONE Stop: 11/18/16 13:01 Dextrose/Sodium Chloride (Dextrose 5%/0.45% Ns 1000 Ml) 1,000 mls @ 50 mls/hr IV .Q20H [facility] Last Admin: 11/17/16 20:07 Dose: 50 mls/hr Insulin Human Regular (Novolin R) 1 unit SC ACHS [facility] PRN Reason: Protocol Last Admin: 11/18/16 07:30 Dose: Not Given Losartan Potassium (Cozaar) 50 mg PO DAILY [facility] Last Admin: 11/17/16 10:30 Dose: 50 mg Pantoprazole Sodium (Protonix Inj) 40 mg IVP ACB [facility] Last Admin: 11/18/16 08:30 Dose: 40 mg Polyethylene Glycol/Electrolytes (Golytely) 4,000 ml PO ONCE ONE Stop: 11/18/16 15:01 - Labs Labs: 11/17/16 07:10 11/17/16 07:10 PT 10.9 SECONDS (9.7-12.2) 11/16/16 02:15 INR 1.0 11/16/16 02:15 APTT 30 SECONDS (21-34) 11/16/16 02:15 - Constitutional Appears: Non-toxic, No Acute Distress - Eye Exam Eye Exam: EOMI, PERRL - ENT Exam ENT Exam: Mucous Membranes Moist - Respiratory Exam Respiratory Exam: Clear to Ausculation Bilateral. absent: Rales, Rhonchi, Wheezes - Cardiovascular Exam Cardiovascular Exam: RRR, +S1, +S2 - GI/Abdominal Exam GI & Abdominal Exam: Soft, Normal Bowel Sounds. absent: Distended, Firm, Guarding, Rigid, Tenderness, Organomegaly - Extremities Exam Extremities Exam: Normal Inspection. absent: Pedal Edema - Neurological Exam Neurological Exam: Alert, Awake, Oriented x3 - Psychiatric Exam Psychiatric exam: Normal Affect, Normal Mood - Skin Skin Exam: Dry, Warm Assessment and Plan - Assessment and Plan (Free Text) Assessment: Patient is a 75yo female with PMHx significant for lung cancer, cerebral aneursym s/p coiling, CAD s/p 3 vessel CABG, divertiulitis s/p partial colectomy , HTN, DM,dyslipidemia who presented to the hospital with one day of rectal bleeding -Hematochezia -Syncope and collapse -External hemorrhoids -Constipation -Bradycardia -CAD s/p CABG -AHSAN vs CKD -H/O Lung cancer s/p chemo/XRT -H/O diverticulitis s/p partial colectomy -H/O cerebral aneurysm s/p coiling Plan: -Plan for EGD/Colonoscopy tomorrow -Clear liquid diet today -NPO past MN -Dulcolax 20mg PO once at 1300 -Golytely 4L prep to be given at 1500 -Cardiology evaluated - cleared for procedure -Protonix 40mg IV QAMAC <Poly Escobedo MD - Last Filed: 11/18/16 18:52> Objective - Vital Signs/Intake and Output Vital Signs (last 24 hours): Temp Pulse Resp BP Pulse Ox 97.4 F L 97 H 20 116/80 96 11/18/16 16:12 11/18/16 16:12 11/18/16 16:12 11/18/16 16:12 11/18/16 16:12 Intake and Output: 11/18/16 11/18/16 06:59 18:59 Intake Total 745 Balance 745 - Medications Medications: Current Medications Dextrose/Sodium Chloride (Dextrose 5%/0.45% Ns 1000 Ml) 1,000 mls @ 50 mls/hr IV .Q20H [facility] Last Admin: 11/18/16 10:00 Dose: 50 mls/hr Insulin Human Regular (Novolin R) 1 unit SC ACHS [facility] PRN Reason: Protocol Last Admin: 11/18/16 16:45 Dose: Not Given Losartan Potassium (Cozaar) 50 mg PO DAILY [facility] Last Admin: 11/18/16 12:44 Dose: 50 mg Pantoprazole Sodium (Protonix Inj) 40 mg IVP ACB [facility] Last Admin: 11/18/16 08:30 Dose: 40 mg - Labs Labs: 11/17/16 07:10 11/17/16 07:10 PT 10.9 SECONDS (9.7-12.2) 11/16/16 02:15 INR 1.0 11/16/16 02:15 APTT 30 SECONDS (21-34) 11/16/16 02:15 Attending/Attestation - Attestation I have personally seen and examined this patient.: Yes I have fully participated in the care of the patient.: Yes I have reviewed all pertinent clinical information, including history, physical exam and plan: Yes Notes (Text): 11/18/16 18:50 Patient seen with GI fellow on rounds. This is a 75 yr old female with PMHx significant for lung cancer s/p chemo/radiation, cerebral aneursym s/p coiling, CAD s/p 3 vessel CABG, divertiulitis s/p partial colectomy, HTN, DM, dyslipidemia who presented to the hospital with one day of rectal bleeding. Will benefit from EGD/ colonoscopy- planned for Saturday. Liquid diet today and NPO after midnight Saturday night.
--- NOTE | 2016-11-18 12:36 | CP.PCM.PN ---
Subjective - Date & Time of Evaluation Date of Evaluation: 11/17/16 Time of Evaluation: 10:34 - Subjective Subjective: Pt seen and examined, pt was addmitted with c/o bradycardia and GI bleed, is off cardizem now, denies any complains. B.P is picked up, afebvrile, she is for EGD on saturday Objective - Vital Signs/Intake and Output Vital Signs (last 24 hours): Temp Pulse Resp BP Pulse Ox 98.6 F 105 H 20 155/88 H 97 11/18/16 07:00 11/18/16 07:30 11/18/16 07:00 11/18/16 07:00 11/18/16 07:00 Intake and Output: 11/18/16 11/18/16 06:59 18:59 Intake Total 745 Balance 745 - Medications Medications: Current Medications Bisacodyl (Dulcolax) 20 mg PO ONCE ONE Stop: 11/18/16 13:01 Dextrose/Sodium Chloride (Dextrose 5%/0.45% Ns 1000 Ml) 1,000 mls @ 50 mls/hr IV .Q20H [facility] Last Admin: 11/17/16 20:07 Dose: 50 mls/hr Insulin Human Regular (Novolin R) 1 unit SC ACHS [facility] PRN Reason: Protocol Last Admin: 11/18/16 07:30 Dose: Not Given Losartan Potassium (Cozaar) 50 mg PO DAILY [facility] Last Admin: 11/17/16 10:30 Dose: 50 mg Pantoprazole Sodium (Protonix Inj) 40 mg IVP ACB [facility] Last Admin: 11/18/16 08:30 Dose: 40 mg Polyethylene Glycol/Electrolytes (Golytely) 4,000 ml PO ONCE ONE Stop: 11/18/16 15:01 - Labs Labs: 11/17/16 07:10 11/17/16 07:10 PT 10.9 SECONDS (9.7-12.2) 11/16/16 02:15 INR 1.0 11/16/16 02:15 APTT 30 SECONDS (21-34) 11/16/16 02:15 - Constitutional Appears: No Acute Distress - Head Exam Head Exam: ATRAUMATIC, NORMAL INSPECTION, NORMOCEPHALIC - Eye Exam Eye Exam: EOMI, Normal appearance, PERRL Pupil Exam: NORMAL ACCOMODATION, PERRL - Respiratory Exam Respiratory Exam: Clear to Ausculation Bilateral - Cardiovascular Exam Cardiovascular Exam: REGULAR RHYTHM, +S1, +S2. absent: Murmur Assessment and Plan (1) Syncope Status: Resolved (2) Rectal bleed Assessment & Plan: for EGD on saturday Status: Resolved (3) Symptomatic bradycardia Assessment & Plan: off cardizem Status: Resolved
[2016-11-18] MEDS ORDERED: Bisacodyl 5mg EC Tab PO ONE (13:00)
[2016-11-18] MEDS ORDERED: Peg-Electrolyte Oral Soln 4L (Golytely) PO ONE (15:00)
--- NOTE | 2016-11-18 16:37 | CARD ---
APPROVED REPORT EKG Measurement Heart [id number] TN [id number] [id number] <Conclusion> Poor data quality, interpretation may be adversely affected Sinus bradycardia Anteroseptal infarct, age undetermined Abnormal ECG
--- NOTE | 2016-11-18 23:02 | CP.PCM.PN ---
Subjective - Date & Time of Evaluation Date of Evaluation: 11/18/16 Time of Evaluation: 11:35 - Subjective Subjective: Pt seen and examined, pt was addmitted with c/o bradycardia and GI bleed, is off cardizem now, denies any complains. Kishor.Jhony is picked up, afebvrile, she is for EGD on saturday Objective - Vital Signs/Intake and Output Vital Signs (last 24 hours): Temp Pulse Resp BP Pulse Ox 97.4 F L 97 H 20 116/80 96 11/18/16 16:12 11/18/16 16:12 11/18/16 16:12 11/18/16 16:12 11/18/16 16:12 Intake and Output: 11/18/16 11/19/16 18:59 06:59 Intake Total 1000 Balance 1000 - Medications Medications: Current Medications Dextrose/Sodium Chloride (Dextrose 5%/0.45% Ns 1000 Ml) 1,000 mls @ 50 mls/hr IV .Q20H [facility] Last Admin: 11/18/16 10:00 Dose: 50 mls/hr Insulin Human Regular (Novolin R) 1 unit SC ACHS [facility] PRN Reason: Protocol Last Admin: 11/18/16 22:20 Dose: Not Given Losartan Potassium (Cozaar) 50 mg PO DAILY [facility] Last Admin: 11/18/16 12:44 Dose: 50 mg Pantoprazole Sodium (Protonix Inj) 40 mg IVP ACB [facility] Last Admin: 11/18/16 08:30 Dose: 40 mg - Labs Labs: 11/17/16 07:10 11/17/16 07:10 PT 10.9 SECONDS (9.7-12.2) 11/16/16 02:15 INR 1.0 11/16/16 02:15 APTT 30 SECONDS (21-34) 11/16/16 02:15 - Constitutional Appears: No Acute Distress - Head Exam Head Exam: ATRAUMATIC, NORMAL INSPECTION, NORMOCEPHALIC - Eye Exam Eye Exam: EOMI, Normal appearance, PERRL Pupil Exam: NORMAL ACCOMODATION, PERRL - ENT Exam ENT Exam: Mucous Membranes Moist, Normal Exam - Respiratory Exam Respiratory Exam: Clear to Ausculation Bilateral, NORMAL BREATHING PATTERN - Cardiovascular Exam Cardiovascular Exam: REGULAR RHYTHM, +S1, +S2. absent: Murmur - GI/Abdominal Exam GI & Abdominal Exam: Soft, Normal Bowel Sounds. absent: Tenderness - Neurological Exam Neurological Exam: Alert, Awake, CN II-XII Intact, Normal Gait, Oriented x3 - Skin Skin Exam: Pallor Assessment and Plan (1) Syncope Status: Resolved (2) Rectal bleed Status: Resolved (3) Symptomatic bradycardia Status: Resolved
[2016-11-19] MEDS: (Novolin R) Insulin Human Regular 100 units/ml vial SC SCH ×2 (07:53→12:13)
[2016-11-19 09:36] LABS: BASO # 0.1 K/uL (0.0-0.2); BASO % 0.7 % (0.0-2.0); EOS # 0.3 K/uL (0.0-0.7); EOS % 2.1 % (0.0-4.0); HEMATOCRIT 39.3 % (34.0-47.0); LYMPH # 2.1 K/uL (1.0-4.3); LYMPH % 14.8 % (20.0-40.0); MEAN CELL VOLUME 86.4 fL (81.0-99.0); MEAN CORPUSCULAR HEMOGLOBIN 28.2 pg (27.0-31.0); MEAN CORPUSCULAR HGB CONC 32.7 g/dL (33.0-37.0); MEAN PLATELET VOLUME 7.7 fL (7.2-11.7); MONO % 7.1 % (0.0-10.0); RED CELL DISTRIBUTION WIDTH 14.3 % (11.5-14.5)
[2016-11-19 09:37] LABS: WHITE BLOOD COUNT 14.1 K/uL (4.8-10.8)
[2016-11-19 09:47] LABS: POTASSIUM 3.7 mmol/L (3.6-5.2)
[2016-11-19 09:49] LABS: BILIRUBIN,TOTAL 0.6 mg/dL (0.2-1.3)
[2016-11-19 09:50] LABS: ALB/GLOB RATIO 1.4 (1.0-2.1); TOTAL PROTEIN 7.5 g/dL (6.3-8.3)
[2016-11-19 09:51] LABS: CALCIUM 9.2 mg/dl (8.6-10.4)
--- NOTE | 2016-11-19 10:03 | CARD ---
APPROVED REPORT EXAM: Two-dimensional and M-mode echocardiogram with Doppler and color Doppler. Other Information Quality : GoodRhythm : Bradycardia INDICATION Syncope RISK FACTORS Hypertension Hyperlipidemia M-Mode DIMENSIONS RVDd1.70 (2.1-3.2cm)Left Atrium (MM)3.54 (2.5-4.0cm) IVSd0.66 (0.7-1.1cm)Aortic Root2.98 (2.2-3.7cm) LVDd4.27 (4.0-5.6cm)Aortic Cusp Exc.1.67 (1.5-2.0cm) PWd1.04 (0.7-1.1cm)FS (%) 39 % LVDs2.60 (2.0-3.8cm)LVEF (%)70 (>50%) Aortic Valve AoV Peak Oqnvymnk514.1cm/Chip Peak GR.9mmHg Mitral Valve MV E Yiosvcwb86.7cm/sMV A Okrhprpn745.8cm/sE/A ratio0.8 TDI E/Lateral E'0.0E/Medial E'0.0 Tricuspid Valve TR Peak Hrjxmizu563rz/sTR Peak Gr.32xmTzVLAH38jpQs <Conclusion> Left ventricle: thickness: normal; size: normal; overall ejection fraction: 65%: diastolic filling pressures: normal Mitral valve: annulus: normal: leaflets: normal: excursion: normal; no significant trans-mitral gradient: mild incompetence: left atrium: normal Aortic valve: leaflets: normal: excursion: normal; no significant trans-aortic gradient: No significant incompetence: aortic root: normal Right sided Structures: linear echo density in the posterior atrium suggestive of a prominent eustachian valve; please correlate clinically Pulmonary valve: normal; no significant incompetence; Tricuspid valve: normal; no significant incompetence: Intra-cardiac hemodynamics: pulmonary systolic pressures: normal; central venous pressures: normal No pericardial effusion
[2016-11-19] MEDS ORDERED: Simethicone 40 mg/0.6 ml Liquid (30 ml) ONE (10:23)
[2016-11-19] MEDS ORDERED: Propofol 10 mg/ml Inj (20 ML) ONE (10:53)
[2016-11-19 15:48] VITALS: BP 150/72; PULSE 83; RESP 20; TEMP 97.8; O2SAT 97
--- NOTE | 2016-11-19 17:24 | CP.PCM.PN ---
Subjective - Date & Time of Evaluation Date of Evaluation: 11/19/16 Time of Evaluation: 12:30 - Subjective Subjective: Pt seen an d examined today, denies any abdominal pain / n/ v/ d , dizziness , Denies any further rectal bleeding. H& H - stable s/p EGD- Colonoscopy --gastritis, gastric ulcer with clean ulcer base , one duodinal polyp( see full report for details) Objective - Vital Signs/Intake and Output Vital Signs (last 24 hours): Temp Pulse Resp BP Pulse Ox 97.8 F 83 20 150/72 97 11/19/16 15:46 11/19/16 15:46 11/19/16 15:46 11/19/16 15:46 11/19/16 15:46 Intake and Output: 11/19/16 11/19/16 06:59 18:59 Intake Total 1400 575 Balance 1400 575 - Medications Medications: Current Medications Insulin Human Regular (Novolin R) 1 unit SC ACHS [facility] PRN Reason: Protocol Last Admin: 11/19/16 12:13 Dose: Not Given Losartan Potassium (Cozaar) 50 mg PO DAILY [facility] Last Admin: 11/19/16 12:12 Dose: 50 mg Pantoprazole Sodium (Protonix Ec Tab) 40 mg PO ACB [facility] - Labs Labs: 11/19/16 09:32 11/19/16 09:32 PT 11.1 SECONDS (9.7-12.2) 11/19/16 09:32 INR 1.0 11/19/16 09:32 APTT 30 SECONDS (21-34) 11/16/16 02:15 Assessment and Plan - Assessment and Plan (Free Text) Assessment: A/P 75 YR Old femnale admitted for rectal bleeding/ syncope/ symptomatc bradycardia H& H - stable bradycardia improved after hold cardizem s/p EGD/ colonoscopy - pt tolerating diet after colonoscopy . GI recomends to f/u 3 months D/W Dr. Lopez, stable for discharge home today and f/u with PMD in 1 week and gi in 3 months Discharge plan discussed with patient who understands and agrees with plan Pt instructed to avoud, asoirin, motrin an dNSAID Pt instructed to returns to ED if SYMPTOMS RETURNS
--- NOTE | 2016-11-19 23:43 | CP.PCM.DIS ---
Provider - Provider Date of Admission: 11/16/16 03:06 Attending physician: Phong Lopez MD Time Spent in preparation of Discharge (in minutes): 30 Diagnosis - Discharge Diagnosis (1) Syncope Status: Resolved (2) Rectal bleed Status: Resolved (3) Symptomatic bradycardia Status: Resolved Hospital Course - Lab Results Lab Results: Most Recent Lab Values WBC 14.1 K/uL (4.8-10.8) H D 11/19/16 09:32 RBC 4.55 Mil/uL (3.80-5.20) 11/19/16 09:32 Hgb 12.8 g/dL (11.0-16.0) 11/19/16 09:32 Hct 39.3 % (34.0-47.0) 11/19/16 09:32 MCV 86.4 fL (81.0-99.0) 11/19/16 09:32 MCH 28.2 pg (27.0-31.0) 11/19/16 09:32 MCHC 32.7 g/dL (33.0-37.0) L 11/19/16 09:32 RDW 14.3 % (11.5-14.5) 11/19/16 09:32 Plt Count 287 K/uL (130-400) 11/19/16 09:32 MPV 7.7 fL (7.2-11.7) 11/19/16 09:32 Neut % (Auto) 75.3 % (50.0-75.0) H 11/19/16 09:32 Lymph % (Auto) 14.8 % (20.0-40.0) L 11/19/16 09:32 [place] % (Auto) 7.1 % (0.0-10.0) 11/19/16 09:32 Eos % (Auto) 2.1 % (0.0-4.0) 11/19/16 09:32 Baso % (Auto) 0.7 % (0.0-2.0) 11/19/16 09:32 Neut # 10.6 K/uL (1.8-7.0) H 11/19/16 09:32 Lymph # 2.1 K/uL (1.0-4.3) 11/19/16 09:32 [place] # 1.0 K/uL (0.0-0.8) H 11/19/16 09:32 Eos # 0.3 K/uL (0.0-0.7) 11/19/16 09:32 Baso # 0.1 K/uL (0.0-0.2) 11/19/16 09:32 Differential Comment 11/16/16 01:44 PT 11.1 SECONDS (9.7-12.2) 11/19/16 09:32 INR 1.0 11/19/16 09:32 APTT 30 SECONDS (21-34) 11/16/16 02:15 Sodium 145 mmol/L (132-148) 11/19/16 09:32 Potassium 3.7 mmol/L (3.6-5.2) 11/19/16 09:32 Chloride 105 mmol/L (98-107) 11/19/16 09:32 Carbon Dioxide 22 mmol/L (22-30) 11/19/16 09:32 Anion Gap 22 (10-20) H 11/19/16 09:32 BUN 21 mg/dL (7-17) H 11/19/16 09:32 Creatinine 2.4 MG/DL (0.7-1.2) H 11/19/16 09:32 Est GFR ( Amer) 24 11/19/16 09:32 Est GFR (Non-Af Amer) 20 11/19/16 09:32 POC Glucose (mg/dL) 132 mg/dL (65-110) H 11/19/16 16:47 Random Glucose 103 mg/dL (65-105) 11/19/16 09:32 Calcium 9.2 mg/dl (8.6-10.4) 11/19/16 09:32 Total Bilirubin 0.6 mg/dL (0.2-1.3) 11/19/16 09:32 AST 29 U/L (14-36) 11/19/16 09:32 ALT 28 U/L (9-52) 11/19/16 09:32 Alkaline Phosphatase 92 U/L (38-126) 11/19/16 09:32 Total Protein 7.5 g/dL (6.3-8.3) 11/19/16 09:32 Albumin 4.4 g/dL (3.5-5.0) 11/19/16 09:32 Globulin 3.1 gm/dL (2.2-3.9) 11/19/16 09:32 Albumin/Globulin Ratio 1.4 (1.0-2.1) 11/19/16 09:32 TSH 3rd Generation 1.56 mIU/L (0.46-4.68) 11/16/16 11:06 Stool Occult Blood Positive (NEGATIVE) H 11/17/16 21:21 Blood Type O NEGATIVE 11/16/16 01:44 Antibody Screen Negative 11/16/16 01:44 - Hospital Course Hospital Course: Pt seen an d examined today, denies any abdominal pain / n/ v/ d , dizziness , Denies any further rectal bleeding. H& H - stable s/p EGD- Colonoscopy --gastritis, gastric ulcer with clean ulcer base , one duodinal polyp( see full report for details) Pt is for discharge home with out patient follow up Discharge Exam - Head Exam Head Exam: ATRAUMATIC, NORMAL INSPECTION, NORMOCEPHALIC - Eye Exam Eye Exam: EOMI, Normal appearance, PERRL Pupil Exam: NORMAL ACCOMODATION, PERRL - ENT Exam ENT Exam: Mucous Membranes Moist - Respiratory Exam Respiratory Exam: Clear to PA & Lateral, NORMAL BREATHING PATTERN - Cardiovascular Exam Cardiovascular Exam: REGULAR RHYTHM, +S1, +S2 - GI/Abdominal Exam GI & Abdominal Exam: Normal Bowel Sounds Discharge Plan - Discharge Medications Prescriptions: Pantoprazole [Protonix EC Tab] 40 mg PO ACB #30 ect - Follow Up Plan Condition: FAIR Disposition: HOME/ ROUTINE Instructions: Pantoprazole (By mouth), Colonoscopy (DC), Rectal Bleeding (DC), Heart Healthy Diet (DC), Syncope (DC), Upper Endoscopy (DC) Additional Instructions: f/u with Dr. Cdaet office in 1 week F/u with Dr. Lew office in 3 months - call for appointment Continue medication as per Med. Rec. No aspirin , plavix, NSAID Referrals: Claudio Lew MD [Staff Provider] - Phong Lopez MD [Staff Provider] -
[2016-11-20] MEDS ORDERED: Pantoprazole 40 mg EC Tab PO SCH (07:30)
--- NOTE | 2016-11-21 19:14 | PQF GENQUE ---
This form is a permanent part of the medical record Clarification of your documentation is requested to better reflect the severity of illness and intensity of treatment of your patient. PLEASE, CLARIFY (IF KNOWN) ETIOLOGY OF RECTAL BLEEDING Indicators present [x] Specify: [ RECTAL BLEEDING, MELENA] [X] Specify: [ EDG FINDINGS - GASTRIC ULCER, GASTRITIS, SCHATZKI RING, DUODENAL POLYP] [X] Specify: [ COLONOSCOPY - POLYP SIGMOID & RECTAL, DIVERTICULOSIS, HEMORRHOIDS ] [X] Specify: [ HTN, DM, CAD, HX DIVERTICULITIS SURGERY WAS DONE- HX LUNG CA ] Location in the medical record that reflects the above clinical findings: [ P. NOTES, OP REPORTS ,] Treatment Provided: [ COLONOSCOPY and EGD] PHYSICIAN'S RESPONSE Based on your medical judgment of the clinical indicators outlined above please clarify the following: [] Practitioner response [] If unable to determine, please check the box, sign and date. Present On Admission (POA) Indicator: [] Present at the time of admission [] Not present at the time of admission [] Clinically Undetermined In responding to this query, please exercise your independent professional judgment. The fact that a question is asked does not imply that any particular answer is desired or expected. Thank you for your clarification on this documentation. If you have any questions please call:[ ] * Thank you, [Hannah Ritchie ] international broadcast [employer] librarian [employer]
== END 2016-11-19 17:35 | disposition home or self-care (01) | DRG 378 ==
LOC: C.ER 01:09 → C.9E 03:06 → C.6T 04:03
PROVIDERS: ADMIT Internal Medicine; ATTEND Internal Medicine
PROC: 0DB98ZX Excision of Duodenum, Via Natural or Artificial Opening Endoscopic, Diagnostic (ICD-10-PCS; 2016-11-19)
PROC: 0DB78ZX Excision of Stomach, Pylorus, Via Natural or Artificial Opening Endoscopic, Diagnostic (ICD-10-PCS; 2016-11-19)
PROC: 0DB68ZX Excision of Stomach, Via Natural or Artificial Opening Endoscopic, Diagnostic (ICD-10-PCS; 2016-11-19)
PROC: 0DBP8ZX Excision of Rectum, Via Natural or Artificial Opening Endoscopic, Diagnostic (ICD-10-PCS; principal; 2016-11-19 10:10)
PROC: 0DBN8ZX Excision of Sigmoid Colon, Via Natural or Artificial Opening Endoscopic, Diagnostic (ICD-10-PCS; 2016-11-19 10:10)
DX: K57.31 Diverticulosis of large intestine without perforation or abscess with bleeding (principal); N17.9 Acute kidney failure, unspecified; E11.22 Type 2 diabetes mellitus with diabetic chronic kidney disease; R00.1 Bradycardia, unspecified; K22.2 Esophageal obstruction; E11.9 Type 2 diabetes mellitus without complications; K62.1 Rectal polyp; K25.9 Gastric ulcer, unspecified as acute or chronic, without hemorrhage or perforation; N18.9 Chronic kidney disease, unspecified; D12.5 Benign neoplasm of sigmoid colon; K64.4 Residual hemorrhoidal skin tags; I12.9 Hypertensive chronic kidney disease with stage 1 through stage 4 chronic kidney disease, or unspecified chronic kidney disease; R55 Syncope and collapse; K44.9 Diaphragmatic hernia without obstruction or gangrene; K29.60 Other gastritis without bleeding; I25.10 Atherosclerotic heart disease of native coronary artery without angina pectoris; E78.5 Hyperlipidemia, unspecified; E78.00 Pure hypercholesterolemia, unspecified; Z85.118 Personal history of other malignant neoplasm of bronchus and lung; Z90.49 Acquired absence of other specified parts of digestive tract; Z95.1 Presence of aortocoronary bypass graft; Z87.891 Personal history of nicotine dependence